=== PATIENT | female | born 1950 | race Caucasian/White ===

== ENCOUNTER 2017-05-02 06:55 | Day surgery (SDC) | payer MEDICARE, OTHER ==
[~2017-05-02] VITALS: Ht 160 cm; Wt 59.4 kg
[~2017-05-02 06:55] MED LIST: ALEN70 PO; DESI50 PO; ESTRTP VAG; FISH OIL + D31 EACH; FOLBIC RF TABL1 EACH; GABA300 PO; Hair, Skin & N1 EACH; LEVSOD88 PO; MELA3 PO; MELO7.5 PO; NAPR500 PO; OMEP20ER PO; ROSU5 PO; Voltaren100 GM TP
[2017-11-24] MEDS ORDERED: LEVSOD75 PO (15:34)
[2017-11-24] MEDS ORDERED: VITAMIN B122500 MC1 PO (15:36)
== END 2017-05-02 11:05 | disposition home or self-care (01) ==
LOC: ORSCSDS 06:55
PROVIDERS: Podiatrist Foot & Ankle Surgery
PROC: 0SGN04Z Fusion of Left Metatarsal-Phalangeal Joint with Internal Fixation Device, Open Approach (ICD-10-PCS; principal; 2017-05-02 08:00)
PROC: 0L8W0ZZ Division of Left Foot Tendon, Open Approach (ICD-10-PCS; principal; 2017-05-02 08:00)
PROC: 0QSP04Z Reposition Left Metatarsal with Internal Fixation Device, Open Approach (ICD-10-PCS; principal; 2017-05-02 08:00)
DX: M20.12 Hallux valgus (acquired), left foot (principal); M20.42 Other hammer toe(s) (acquired), left foot; Z79.899 Other long term (current) drug therapy
CPT/HCPCS: C1713; C1769; J0171; J0690; J1100; J1885; J2250; J2405; J3010; J7120

== ENCOUNTER 2017-12-01 10:01 | Day surgery (SDC) | payer MEDICARE, OTHER ==
[~2017-12-01] VITALS: Ht 157.5 cm; Wt 56.4 kg
[~2017-12-01 10:01] MED LIST changes: +LEVSOD75 PO; +VITAMIN B122500 MC1 PO
== END 2017-12-01 13:13 | disposition home or self-care (01) ==
LOC: ORSCSDS 10:01
PROVIDERS: Student in an Organized Health Care Education/Training Program
PROC: 0DBN8ZX Excision of Sigmoid Colon, Via Natural or Artificial Opening Endoscopic, Diagnostic (ICD-10-PCS; principal; 2017-12-01 11:15)
DX: R15.0 Incomplete defecation (principal); D12.4 Benign neoplasm of descending colon; K64.8 Other hemorrhoids; Q43.8 Other specified congenital malformations of intestine; Z86.010 Personal history of colon polyps; E03.9 Hypothyroidism, unspecified; F32.9 Major depressive disorder, single episode, unspecified; K21.9 Gastro-esophageal reflux disease without esophagitis; Z79.82 Long term (current) use of aspirin; Z79.899 Other long term (current) drug therapy

== ENCOUNTER → 2018-05-01 | Outpatient (CLI) | payer MEDICARE, OTHER | END | disposition home or self-care (01) | LOC: PLD 07:52 → LAB SHORT 07:52 | DX: M65.341 Trigger finger, right ring finger (principal) | CPT/HCPCS: 88304 ==

== ENCOUNTER 2021-05-25 13:08 | Day surgery (SDC) | payer MEDICARE, OTHER ==
[~2021-05-25] VITALS: Ht 154.9 cm; Wt 53.9 kg
== END 2021-05-25 16:35 | disposition home or self-care (01) ==
LOC: ORSCSDS 13:08
PROVIDERS: Podiatrist Foot & Ankle Surgery
PROC: 0QPP04Z Removal of Internal Fixation Device from Left Metatarsal, Open Approach (ICD-10-PCS; principal; 2021-05-25 14:45)
PROC: 0QSP04Z Reposition Left Metatarsal with Internal Fixation Device, Open Approach (ICD-10-PCS; principal; 2021-05-25 14:45)
DX: T84.84XA Pain due to internal orthopedic prosthetic devices, implants and grafts, initial encounter (principal); M21.612 Bunion of left foot; E03.9 Hypothyroidism, unspecified; K21.9 Gastro-esophageal reflux disease without esophagitis; Z79.899 Other long term (current) drug therapy
CPT/HCPCS: C1713; J0171; J0690; J2250; J2704; J3010; J7120

== ENCOUNTER 2022-06-11 07:10 | Day surgery (SDC) | payer MEDICARE, OTHER ==
[~2022-06-11] VITALS: Ht 157.5 cm; Wt 51.5 kg
[2022-06-11] MEDS ORDERED: DICLOFENAC SOD100 GM (07:43)
[2022-06-11] MEDS ORDERED: DESI25 (07:43)
== END 2022-06-11 10:30 | disposition home or self-care (01) ==
LOC: ORSCSDS 07:10
PROVIDERS: Student in an Organized Health Care Education/Training Program
PROC: 0DBP8ZX Excision of Rectum, Via Natural or Artificial Opening Endoscopic, Diagnostic (ICD-10-PCS; principal; 2022-06-11 08:30)
PROC: 0DB48ZX Excision of Esophagogastric Junction, Via Natural or Artificial Opening Endoscopic, Diagnostic (ICD-10-PCS; principal; 2022-06-11 08:30)
PROC: 0DBM8ZX Excision of Descending Colon, Via Natural or Artificial Opening Endoscopic, Diagnostic (ICD-10-PCS; principal; 2022-06-11 08:30)
PROC: 0DBH8ZX Excision of Cecum, Via Natural or Artificial Opening Endoscopic, Diagnostic (ICD-10-PCS; principal; 2022-06-11 08:30)
PROC: 0DBN8ZX Excision of Sigmoid Colon, Via Natural or Artificial Opening Endoscopic, Diagnostic (ICD-10-PCS; principal; 2022-06-11 08:30)
PROC: 0DB58ZX Excision of Esophagus, Via Natural or Artificial Opening Endoscopic, Diagnostic (ICD-10-PCS; principal; 2022-06-11 08:30)
PROC: 0DBL8ZX Excision of Transverse Colon, Via Natural or Artificial Opening Endoscopic, Diagnostic (ICD-10-PCS; principal; 2022-06-11 08:30)
PROC: 0DB68ZX Excision of Stomach, Via Natural or Artificial Opening Endoscopic, Diagnostic (ICD-10-PCS; principal; 2022-06-11 08:30)
PROC: 0DBK8ZX Excision of Ascending Colon, Via Natural or Artificial Opening Endoscopic, Diagnostic (ICD-10-PCS; principal; 2022-06-11 08:30)
DX: K21.9 Gastro-esophageal reflux disease without esophagitis (principal); K22.70 Barrett's esophagus without dysplasia; K31.7 Polyp of stomach and duodenum; K29.70 Gastritis, unspecified, without bleeding; K44.9 Diaphragmatic hernia without obstruction or gangrene; D12.2 Benign neoplasm of ascending colon; D12.4 Benign neoplasm of descending colon; K62.1 Rectal polyp; K63.5 Polyp of colon; K64.4 Residual hemorrhoidal skin tags; K64.8 Other hemorrhoids; Z12.11 Encounter for screening for malignant neoplasm of colon; Z86.010 Personal history of colon polyps; E03.9 Hypothyroidism, unspecified; I10 Essential (primary) hypertension; E78.5 Hyperlipidemia, unspecified; Z79.899 Other long term (current) drug therapy
CPT/HCPCS: 88305; 88342; J2704; J7120

== ENCOUNTER 2022-09-13 11:03 | Day surgery (SDC) | payer MEDICARE, OTHER ==
[~2022-09-13] VITALS: Ht 157.5 cm; Wt 53.6 kg
[2022-09-13] VITALS (15 sets, daily range): BP systolic 102–137; BP diastolic 64–91
[~2022-09-13 11:03] MED LIST changes: +DESI25; +DICLOFENAC SOD100 GM
[2022-09-13] MEDS ORDERED: EZET10 PO (12:05)
--- NOTE | 2022-09-13 12:29 | NUR ---
INTO SDS VIA WC WITH AT BEDSIDE. History, Chart, Medications and Allergies reviewed before start of procedure.Patient confirms NPO status and agrees with scheduled surgery. Lungs clear T/O to Auscultation. Patient States Post-Procedure ride home has been arranged WITH . BELONGINGS IN LABELED BAG. GLASSESS WILL BE LABELED AND TAKEN TO PACU.
--- NOTE | 2022-09-13 16:27 | NUR ---
DISCHARGE SUMMARY PT A&OX4, VSS/RA, JADA PO, VOIDED, PAIN MANAGED WITH NORCO 5 MG 5/10, IV DC'D, STAND PIVOT TTWB WITH FWW TO WC. DC INS PROVIDED. PT AND /PLASTIC MACHINE OPERATOR REP UNDERSTANDING: TTWB RLE, LEAVE BRACE/TEDS/GÉNESIS ON, OK TO SHOWER/NO TUB, DRESSING CHANGE Q3-5 DAYS, ASA BID X6WKS, NORCO/PAIN MGMT, STOOL SOFT PRN, CALL FOR APPT WITH SURG 2 WKS. LEFT FLOOR VIA WC WITH RN, WITH ALL PERSONAL POSSESSIONS INCLUDING DC PACKET/DRESSINGS/REP HAVING NARCOTIC SCRIPT FILLED AT HOME, TO GO HOME WITH /PLASTIC MACHINE OPERATOR.
--- NOTE | 2022-09-17 08:02 | NUR ---
09/17/22 0802 Anupama Nguyen VERIFICATIONS: EDIT CHART.
== END 2022-09-13 23:48 | disposition home or self-care (01) ==
LOC: ORSCMMR 11:03
PROVIDERS: Orthopaedic Surgery
PROC: 0QSD04Z Reposition Right Patella with Internal Fixation Device, Open Approach (ICD-10-PCS; principal; 2022-09-13 12:30)
DX: S82.001A Unspecified fracture of right patella, initial encounter for closed fracture (principal); W01.0XXA Fall on same level from slipping, tripping and stumbling without subsequent striking against object, initial encounter; E03.9 Hypothyroidism, unspecified; Z79.899 Other long term (current) drug therapy
CPT/HCPCS: A9270; C1713; C1769; J0171; J0690; J0735; J1100; J1885; J2250; J2370; J2405; J2704; J2795; J3010; J7120

== ENCOUNTER → 2024-10-15 | Outpatient (CLI) | payer MEDICARE, OTHER ==
[~2024-10-15] MED LIST changes: +EZET10 PO
== END ==
LOC: LAB 15:56 → LAB SHORT 15:56
DX: N32.89 Other specified disorders of bladder (principal); R31.9 Hematuria, unspecified
CPT/HCPCS: 87077; 87086; 87186; 88108

== ENCOUNTER → 2024-12-08 | Outpatient (CLI) | payer MEDICARE, OTHER | LOC: LAB SHORT 13:39 → LAB 13:39 | DX: R21 Rash and other nonspecific skin eruption (principal) | CPT/HCPCS: 88312 ==